=== PATIENT | female | born 2000 | race American Indian/Alaskan Native ===

== ENCOUNTER 2022-01-18 05:35 | Emergency (ER) | payer MEDICAID ==
[2022-01-18 06:24] VITALS: BP 108/54
--- NOTE | 2022-01-18 07:18 | Emergency Department Report ---
ED General Adult HPI - General Chief complaint: Extremity Injury, Upper Stated complaint: SHARP PAIN IN ARMS Time Seen by Provider: 01/18/22 06:27 Source: patient Mode of arrival: Ambulatory Limitations: No Limitations - History of Present Illness Initial comments: 21-year-old -[place] female patient presents with complaints of right- sided neck pain radiating down her right arm x2 to 3 months, worsening over the past few days. 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 She denies any fever/chills/sweats, history of cancer, difficulty moving her neck or arm, chest pain, or shortness of breath. No injuries to the neck or arm per patient. She does report intermittent numbness and tingling that appears to worsen with use of the arm. Patient reports ibuprofen is not helping with her symptoms. No past medical history or known drug allergies per patient Severity scale (0 -10): 3 - Related Data Previous Rx's Medication Instructions Recorded Last Taken Type Naproxen [Naprosyn] 500 mg PO BID PRN #30 tab 01/18/22 Unknown Rx methOCARBAMOL [Robaxin TAB] 750 - 1,500 mg PO TID PRN #30 01/18/22 Unknown Rx tablet predniSONE [Deltasone] 20 mg PO BID 3 Days #6 tab 01/18/22 Unknown Rx Allergies Allergy/AdvReac Type Severity Reaction Status Date / Time No Known Allergies Allergy Verified 01/18/22 06:15 ED Review of Systems ROS: Stated complaint: SHARP PAIN IN ARMS Other details as noted in HPI Constitutional: denies: chills, fever Respiratory: denies: cough, shortness of breath Cardiovascular: denies: chest pain Gastrointestinal: denies: abdominal pain Musculoskeletal: denies: joint swelling Skin: denies: rash, lesions, change in color Neurological: paresthesias. denies: headache, abnormal gait ED Past Medical Hx - Past Medical History Previous Medical History?: No - Surgical History Past Surgical History?: Yes Hx Cholecystectomy: Yes - Medications Home Medications: Home Medications Medication Instructions Recorded Confirmed Last Taken Type Naproxen [Naprosyn] 500 mg PO BID PRN #30 tab 01/18/22 Unknown Rx methOCARBAMOL [Robaxin TAB] 750 - 1,500 mg PO TID PRN #30 01/18/22 Unknown Rx tablet predniSONE [Deltasone] 20 mg PO BID 3 Days #6 tab 01/18/22 Unknown Rx ED Physical Exam - General Limitations: No Limitations General appearance: alert, in no apparent distress - Head Head exam: Present: atraumatic, normocephalic - Eye Eye exam: Present: normal appearance. Absent: scleral icterus - Neck Neck exam: Present: tenderness (Tenderness to palpation noted to the right paravertebral area without vertebral tenderness or obvious deformities noted), full ROM - Respiratory Respiratory exam: Present: normal lung sounds bilaterally. Absent: respiratory distress - Cardiovascular Cardiovascular Exam: Present: regular rate, normal rhythm - Expanded Upper Extremity Exam Right Shoulder Exam: Present: normal inspection Upper Arm exam: Present: normal inspection Elbow exam: Present: normal inspection Forearm Wrist exam: Present: normal inspection Hand Wrist exam: Present: normal inspection Vascular: Absent: pulse deficit radial art, pulse deficit ulnar art - Back Exam Back exam: Present: full ROM - Neurological Exam Neurological exam: Present: alert, oriented X3, normal gait - Psychiatric Psychiatric exam: Present: normal affect, normal mood - Skin Skin exam: Present: warm, dry, intact, normal color. Absent: rash ED Course Vital Signs 01/18/22 06:12 Temperature 98.2 F Pulse Rate 57 L Respiratory 15 Rate Blood Pressure 108/54 [Right] O2 Sat by Pulse 100 Oximetry ED Medical Decision Making - Medical Decision Making 21-year-old -[place] female patient presents with complaints of right- sided neck pain radiating down her right arm x2 to 3 months, worsening over the past few days. 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 She denies any fever/chills/sweats, history of cancer, difficulty moving her neck or arm, chest pain, or shortness of breath. No injuries to the neck or arm per patient. She does report intermittent numbness and tingling that appears to worsen with use of the arm. Patient reports ibuprofen is not helping with her symptoms. No past medical history or known drug allergies per patient History and physical consistent with cervical radiculopathy. Will treat with Robaxin and anti-inflammatories for now. Recommend patient follows up with orthopedics or spine specialty for further evaluation and treatment. She is otherwise well-appearing, her vitals within normal limits, she is stable for discharge home. Discussed in detail signs and symptoms that should prompt immediate return to the ED with patient who verbalizes understanding Critical care attestation.: If time is entered above; I have spent that time in minutes in the direct care of this critically ill patient, excluding procedure time. ED Disposition Clinical Impression: Neck pain Disposition: 01 HOME / SELF CARE / HOMELESS Is pt being admited?: No Condition: Stable Instructions: Cervical Radiculopathy, [id number] Additional Instructions: Stop taking ibuprofen Prescriptions: predniSONE [Deltasone] 20 mg PO BID 3 Days #6 tab Naproxen [Naprosyn] 500 mg PO BID PRN #30 tab PRN Reason: pain methOCARBAMOL [Robaxin TAB] 750 - 1,500 mg PO TID PRN #30 tablet PRN Reason: muscle spasm/tightness Referrals: [facility] [Provider Group] - 3-5 Days [facility] [Provider Group] - 3-5 Days Forms: Work/School Release Form(ED)
== END 2022-01-18 08:10 | disposition home or self-care (01) ==
LOC: ED 05:35
DX: M54.2 Cervicalgia (principal); Z90.49 Acquired absence of other specified parts of digestive tract
CPT/HCPCS: 99282

== ENCOUNTER 2022-02-24 21:51 | Emergency (ER) | payer MEDICAID ==
[2022-02-24 22:12] VITALS: BP 128/68
[2022-02-24 23:43] LABS: Bacteria,Urine 2+ /HPF (Negative); Bilirubin,Urine NEG (Negative); Blood,Urine MOD (Negative); Color,Urine Yellow (Yellow); Mucus,Urine 3+ /HPF; Protein,Urine <15 mg/dL mg/dL (Negative)
[2022-02-24 23:45] LABS: HCG Qualitative,Urine Negative (Negative)
== END 2022-02-24 22:24 | disposition left against medical advice (07) ==
LOC: ED 21:51
DX: R10.31 Right lower quadrant pain (principal); Z53.21 Procedure and treatment not carried out due to patient leaving prior to being seen by health care provider
CPT/HCPCS: 81001; 81025; 87086